=== PATIENT | female | born 1945 | race Caucasian/White ===

== ENCOUNTER → 2017-11-03 | Outpatient (CLI) | payer OTHER ==
[2017-11-05 14:09] LABS: HPV 16 Negative (Negative); HPV 18 Negative (Negative); HPV OTHER HR TYPES Negative (Negative)
== END | disposition home or self-care (01) ==
LOC: LAB SHORT 15:19 → LAB 15:19
PROVIDERS: Nurse Practitioner Women's Health
DX: Z12.4 Encounter for screening for malignant neoplasm of cervix (principal)
CPT/HCPCS: 87624; G0123

== ENCOUNTER 2024-01-10 12:40 | Inpatient (IN) | payer OTHER ==
[~2024-01-10] VITALS: Ht 167.6 cm; Wt 55.9 kg
[~2024-01-10 12:40] MED LIST: HYDR1TAB94 PO
[2024-01-10 12:55] LABS: BASOPHILS ABSOLUTE AUTO 0.04 K/mm3 (0.00-0.23); BASOPHILS PERCENT AUTO 1 % (0-2); EOSINOPHILS ABSOLUTE AUTO 0.04 K/mm3 (0.00-0.68); EOSINOPHILS PERCENT AUTO 1 % (0-6); Hematocrit 34.4 % (33.0-51.0); Hemoglobin 11.3 g/dL (11.5-16.0); IMMATURE GRAN ABSOLUTE AUTO 0.01 K/mm3 (0.00-0.10); IMMATURE GRAN PERCENT AUTO 0 % (0-1); LYMPHOCYTES ABSOLUTE AUTO 1.23 K/mm3 (0.84-5.20); LYMPHOCYTES PERCENT AUTO 26 % (21-46); MONOCYTES ABSOLUTE AUTO 0.55 K/mm3 (0.16-1.47); MONOCYTES PERCENT AUTO 12 % (4-13); Mean Corpuscular HGB 29.9 pg (26.0-34.0); Mean Corpuscular HGB Conc 32.8 g/dL (31.5-36.5); Mean Corpuscular Volume 91 fL (80-100); NEUTROPHILS ABSOLUTE AUTO 2.92 K/mm3 (1.96-9.15); NEUTROPHILS PERCENT AUTO 61 % (41-73); Platelet Count 151 K/mm3 (150-400); RDW Coefficient Variation 12.8 % (11.7-14.2); RDW Standard Deviation 41.9 fL (35.1-46.3); Red Blood Cell Count 3.78 M/mm3 (3.80-5.20); White Blood Cell Count 4.79 K/mm3 (4.00-11.30)
[2024-01-10 13:20] LABS: Albumin/Globulin Ratio 1.1 (0.8-1.8); Bilirubin, Total 0.4 mg/dL (0.1-1.0); Bun/Creatinine Ratio 20.1 (12.0-20.0); Calcium, Blood 7.3 mg/dL (8.5-10.1); Creatinine, Blood 0.7 mg/dL (0.40-1.00); Globulin, Blood 2.7 g/dL (2.2-4.0); Potassium, Blood 3.2 mmol/L (3.5-5.5); Total Protein, Blood 5.7 g/dL (6.4-8.2)
[2024-01-10] MEDS ORDERED: Potassium Chloride 20 MEQ TabCR PO ONE (13:25)
[2024-01-10] MEDS ORDERED: Calcium Carbonate 500 MG Tab Chew PO ONE (13:25)
[2024-01-10] MEDS ORDERED: Aspirin 325 MG Tab PO ONE (13:50)
[2024-01-10] MEDS ORDERED: FLU VACC TS2024-25(6MOS UP)/PF 45 MCG/0.5 ML SYRINGE IM SCH (14:45)
[2024-01-10] MEDS ORDERED: NS 1,000 ML IV SCH (14:50)
[2024-01-10 17:20] VITALS: BP 169/86
--- NOTE | 2024-01-10 17:45 | NUR ---
ADMISSION NOTE: PATIENT ARRIVED TO THE UNIT VIA WHEELCHAIR; ALERT AND ABLE TO SELF TRANSFER TO THE BED. ORTHOSTATIC VITALS OBTAINED AND IV FLUIDS STARTED. AWAITING TELEMETRY. NO SIGNS OR SYMPTOMS OF DISTRESS, PLAN OF CARE ONGOING.
--- NOTE | 2024-01-10 18:22 | NUR ---
PATIENT SHARED WITH THIS RN THAT BACK IN 2017 SHE HAD AN EPISODE WHERE SHE WAS WITH HER DAUGHTER AND THEY WERE BOTH ABOUT TO GET INTO THE CAR WHEN THE PATIENT DID NOT ENTER THE CAR. THE DAUGHTER WENT TO GO LOCATE THE PATIENT AND FOUND THE PATIENT DOWN UNCONCIOUS WITH MULTIPLE INJURIES. PATIENT AND DAUGHTER UNSURE OF WHAT HAPPENED. PATIENT STATES THAT SHE DID GO TO THE HOSPITAL FOR THIS. PATIENT ALSO SHARED THAT SINCE SHE HAD COVID LAST YEAR SHE HAS HAD SHORTNESS OF BREATH WHEN CLIMBING STAIRS. SHE ALSO HAD A COMPLICATION WITH INTUBATION WITH A PROCEDURE THAT DAMAGED HER THROAT THAT HAS NOW CAUSED HER TO HAVE THIS CHRONIC IRRITATION AND DRY COUGH FOR X5 YEARS.
[2024-01-10 20:22] VITALS: BP 150/92
--- NOTE | 2024-01-10 22:08 | NUR ---
GOT A CALL FROM LAB THAT PTS TROPONIN WAS CRITICAL AT [address]. CALLED DR. MULLIGAN ON 3 DIFFERENT OCCASIONS AND GOT A CALL BACK AND I INFORMED HIM OF PTS TROPONIN BEING ELEVATED AT 4662. HE STATED THAT HE WOULD REVIEW THE PTS CHART. PT HAS NO C/O CHEST PAIN OR SOB AT THIS TIME. NO S/S NOTED AT THIS TIME WILL CONTINUE TO MONITOR
[2024-01-10] MEDS ORDERED: Atorvastatin 40 MG Tab PO SCH (23:00)
[2024-01-10] MEDS ORDERED: Clopidogrel Bisulfate 75 MG Tab PO ONE (23:00)
[2024-01-10 23:14] LABS: Anti-Xa UFH, PHA Monitoring <0.10 IU/mL; International Normalized Ratio 0.97; Prothrombin Time Results 10.4 Sec (9.7-11.5)
[2024-01-10] MEDS ORDERED: Heparin Sodium,Porcine/0.5 NS 500 ML IV SCH (23:35)
[2024-01-10] MEDS ORDERED: Heparin Sodium 5000 Units/ML 1ML MDV IV ONE (23:35)
[2024-01-11] VITALS (10 sets, daily range): BP systolic 103–136; BP diastolic 52–78
--- NOTE | 2024-01-11 05:20 | NUR ---
SHIFT SUMMARY PT ALERT ORIENTED CALLS APPROPRIATELY. HER TROPONIN LAST NIGHT AT 1999 WAS 4662 UP FROM 171 ON ADMIT. STATED SHES DX WITH A NSTEMI AND STARTED HER ON HEPARIN, ASA, LIPITOR AND PLAVIX. SHE WAS GIVEN THE INITIAL BOLUS OF HEPARIN AT 0015 AND STARTED THE DRIP AT 16.8ML/HR OR 15U/KG/HR. SHES C/O CHEST PRESSURE AND LOWER BACK PAIN. WAS INFORMED OF THIS. SHES DUE TO HAVE A ECHO DONE TODAY. SHE RECEIVED A ONE LITER BAG OF NS AND NOW JUST REMAINS ON THE HEPARIN DRIP. REMAINS ON TELEMETRY AT [facility] AT A RATE OF 88. VSS ON RA SATTING AT 99%. A CARDIOLOGY CONSULT WAS PUT IN FOR DR. TRISTAN. I CALLED THE [facility] AND SPOKE WITH THE ONCALL CENTER AND A ORDER WAS PUT IN FOR THE CONSULT. NO C/O DIZZINESS THIS SHIFT. NO EPISODES OF SYNCOPE. SHES SLEEPING IN BED AT THIS TIME WITH CALL LIGHT IN REACH
[2024-01-11 05:46] LABS: BASOPHILS ABSOLUTE AUTO 0.04 K/mm3 (0.00-0.23); BASOPHILS PERCENT AUTO 1 % (0-2); EOSINOPHILS ABSOLUTE AUTO 0.09 K/mm3 (0.00-0.68); EOSINOPHILS PERCENT AUTO 2 % (0-6); Hematocrit 35.4 % (33.0-51.0); Hemoglobin 12.2 g/dL (11.5-16.0); IMMATURE GRAN ABSOLUTE AUTO 0.01 K/mm3 (0.00-0.10); IMMATURE GRAN PERCENT AUTO 0 % (0-1); LYMPHOCYTES ABSOLUTE AUTO 1.66 K/mm3 (0.84-5.20); LYMPHOCYTES PERCENT AUTO 28 % (21-46); MONOCYTES ABSOLUTE AUTO 0.71 K/mm3 (0.16-1.47); MONOCYTES PERCENT AUTO 12 % (4-13); Mean Corpuscular HGB 30.1 pg (26.0-34.0); Mean Corpuscular HGB Conc 34.5 g/dL (31.5-36.5); Mean Corpuscular Volume 87 fL (80-100); Mean Platelet Volume 10.1 fL (9.1-12.4); NEUTROPHILS ABSOLUTE AUTO 3.34 K/mm3 (1.96-9.15); NEUTROPHILS PERCENT AUTO 57 % (41-73); Platelet Count 175 K/mm3 (150-400); RDW Coefficient Variation 12.7 % (11.7-14.2); Red Blood Cell Count 4.05 M/mm3 (3.80-5.20); White Blood Cell Count 5.85 K/mm3 (4.00-11.30)
[2024-01-11 06:08] LABS: Bun/Creatinine Ratio 13.5 (12.0-20.0); Calcium, Blood 8.7 mg/dL (8.5-10.1); Creatinine, Blood 0.67 mg/dL (0.40-1.00); Potassium, Blood 3.8 mmol/L (3.5-5.5)
[2024-01-11] MEDS ORDERED: Dose Adjust by Pharmacy XX STA (07:37)
[2024-01-11] MEDS ORDERED: Aspirin 325 MG Tab PO ONE (08:55)
[2024-01-11] MEDS ORDERED: Aspirin 81 MG Chew PO SCH (09:00)
[2024-01-11] MEDS ORDERED: Enoxaparin 40 MG/0.4 ML SYR SC SCH (09:00)
[2024-01-11 11:24] LABS: CHOL/HDL RATIO 2.7; Cholesterol 188 mg/dL (50-200); HDL Cholesterol 70 mg/dL (>39); LDL/HDL RATIO 1.5; Low Density Lipoprotein Chol 107 mg/dL (0-110); Triglycerides 57 mg/dL (30-160); Very Low Density Lipoprot Chol 11 mg/dL (6-32)
[2024-01-11] MEDS ORDERED: NS 250 ML IV ONE (12:40)
[2024-01-11] MEDS ORDERED: NS 2,000 ML IV ONE (12:40)
[2024-01-11] MEDS ORDERED: Nitroglycerin 2 MG/20 ML BTL ONE (12:41)
[2024-01-11] MEDS ORDERED: Heparin Sodium 1000 Units/ML 10ML MDV ONE (12:41)
[2024-01-11] MEDS ORDERED: Verapamil HCL 2.5 MG/ML 2ML Injection ONE (12:41)
[2024-01-11] MEDS ORDERED: FentaNYL Citrate 50 MCG/ML 2 ML Injection ONE (12:42)
[2024-01-11] MEDS ORDERED: Midazolam HCl 1MG / ML 2ML Vial ONE (12:42)
[2024-01-11] MEDS ORDERED: Phenylephrine HCl 100 MCG/ML-NS 10MLSYR (1MG/10ML) ONE (13:41)
--- NOTE | 2024-01-11 13:48 | NUR ---
PT LEFT FOR OCULAR CARE TECHNOLOGIST AT 1255. HEPARIN INFUSION WAS STOPPED PRIOR TO LEAVING FOR OCULAR CARE TECHNOLOGIST BY OCULAR CARE TECHNOLOGIST CREW. PT IS A/O X4. DENIES SOB, REPORTS CHEST "PRESSURE". SHE AMBULATES WITHOUT ASSITANCE IN THE ROOM. LS CLEAR TO DIM T/O. SR NOTED ON MONITOR. IV PATENT AT TIME HEPARIN WAS STOPPED. SHE HAS BEEN UP TO BATHROOM WITHOUT DISTRESS. PT TALKING IN FULL SENTENCES, PELASANT AND COOPERATIVE WITH CARE. SHE WAS SEEN THIS AM BY DR HEATH AND CONSENTED BY HIM FOR PROCEDURE. REPORT CALLED TO ANGIE WHO WILL ASSUME PT CARE IN ICU 6 WHEN SHE IS FINISHED IN OCULAR CARE TECHNOLOGIST
--- NOTE | 2024-01-11 16:30 | NUR ---
UPDATE 4362 Dr. Solorio at bedside. Pt complaining of pain/numbness in forearm. Large hematoma noted. Placed a BP cuff over site, inflated to 80. Circulation confirmed with contiuous pulse ox below site. Per provider, remove and re-assess in an hour.
--- NOTE | 2024-01-11 17:37 | NUR ---
1700 No changes noted to TR band, BP cuff on hematoma in place. Pt complaining of numbness in fingers but good pleth on monitor and good cap refill. 1727 Called into room, bleeding from TR band. Re-inflated to 15cc. BP cuff deflated, hematoma improved.
--- NOTE | 2024-01-11 19:35 | NUR ---
ASSUME CARE OF PT AT 1830. TR BAND INFLATED WITH 15 MLS OF AIR WITH BLOOD AT SITE. HEMATOMA NOTED TO RIGHT UPPER FOREARM. PT AMBULATED IN ROOM TO TOILET WITHOUT DIFFICULTY. REPORT GIVEN TO SOFTWARE RELEASE ENGINEER RN. HEMATOMA AND TR BAND SITES UNCHANGED FROM ASSUMPTION OF CARE.
--- NOTE | 2024-01-11 21:32 | NUR ---
ASSUMED CARE ASSUMED CARE AT APPROXIMATELY 1915. PT RESTING COMFORTABLY IN BED WITH A MEDIUM KNOWN HEMATOMA ON R ARM PROXIMAL TO PCI SITE. PT COMPLAINS OF PAIN WITH R ARM WITH PRONATION. TR BAND IN PLACE ON ARRIVAL TO SHIFT. WILL CONTINUE TO DEFLATE TR BAND AND MONITOR CLOSELY FOR S/S OF BLEEDING OR HEMATOMAS. PT HAS NO OTHER COMPLAINTS. WILL CONTINUE PLAN OF CARE.
[2024-01-12 03:21] VITALS: BP 123/73
[2024-01-12 03:29] LABS: BASOPHILS ABSOLUTE AUTO 0.03 K/mm3 (0.00-0.23); BASOPHILS PERCENT AUTO 1 % (0-2); EOSINOPHILS ABSOLUTE AUTO 0.08 K/mm3 (0.00-0.68); EOSINOPHILS PERCENT AUTO 1 % (0-6); Hematocrit 34.3 % (33.0-51.0); Hemoglobin 11.8 g/dL (11.5-16.0); IMMATURE GRAN ABSOLUTE AUTO 0.01 K/mm3 (0.00-0.10); IMMATURE GRAN PERCENT AUTO 0 % (0-1); LYMPHOCYTES ABSOLUTE AUTO 1.61 K/mm3 (0.84-5.20); LYMPHOCYTES PERCENT AUTO 27 % (21-46); MONOCYTES ABSOLUTE AUTO 0.81 K/mm3 (0.16-1.47); MONOCYTES PERCENT AUTO 14 % (4-13); Mean Corpuscular HGB 29.9 pg (26.0-34.0); Mean Corpuscular HGB Conc 34.4 g/dL (31.5-36.5); Mean Corpuscular Volume 87 fL (80-100); Mean Platelet Volume 10.3 fL (9.1-12.4); NEUTROPHILS ABSOLUTE AUTO 3.34 K/mm3 (1.96-9.15); NEUTROPHILS PERCENT AUTO 57 % (41-73); Platelet Count 173 K/mm3 (150-400); RDW Coefficient Variation 12.8 % (11.7-14.2); RDW Standard Deviation 40.8 fL (35.1-46.3); Red Blood Cell Count 3.94 M/mm3 (3.80-5.20); White Blood Cell Count 5.88 K/mm3 (4.00-11.30)
[2024-01-12 03:51] LABS: Calcium, Blood 8.5 mg/dL (8.5-10.1); Creatinine, Blood 0.77 mg/dL (0.40-1.00); Magnesium, Blood 1.7 mg/dL (1.6-2.4); Potassium, Blood 3.7 mmol/L (3.5-5.5)
--- NOTE | 2024-01-12 05:14 | NUR ---
SHIFT SUMMARY PT TR BAND FULLY DEFLATED W/O BLEEDING OR S/S OF HEMATOMA. TR BAND TAKEN OFF AND SITE WAS DRESSED WITH CHLOR/HEX, 4X4 AND TEG. PT COMPLAINS OF TENDER R FOREARM. PT ABLE TO GET UP AND AMBULATE TO BATHROOM INDEPENDENTLY. PT STATED THE MD TOLD HER TO MINIMALLY USE HER R ARM FOR 2 MONTHS. THIS RN INSTRUCTED PT TO FOLLOW UP WITH AM STAFF. WILL CONTINUE PLAN OF CARE.
[2024-01-12 08:00] VITALS: BP 154/77
--- NOTE | 2024-01-12 08:30 | NUR ---
[place] of care: Patient oriented, pleasant, cooperative. No complaints of pain. Vital signs stable. Right wrist site clean/dry/intact with good perfusion to hand. Hematoma to RUE stable. Plans to possibly discharge home today. Will continue to monitor.
[2024-01-12] MEDS ORDERED: Losartan Potassium 25 MG Tab PO SCH (09:00)
[2024-01-12] MEDS ORDERED: Metoprolol Succinate 25 MG TABCR PO SCH (09:00)
--- NOTE | 2024-01-12 10:45 | NUR ---
Patient is lying in bed and alert. She tells me many stories of her adventurous life, the near experiences she has had and the family unit complications. She shares about her [employer] gwen and about the events that led to her admission to the hospital. We talks about her current life and the joys and struggles. I provided therapeutic lstienting and prayer. Patient responded well and showed signs of being encouraged in her beleif system.
[2024-01-12 12:00] VITALS: BP 134/81
--- NOTE | 2024-01-12 13:06 | NUR ---
Discharge note: Pt discharged at 1306 via private transport. All paperwork given to patient & she verbalized understanding of instructions. Vital signs obtained & WNL. She understands to follow up with PCP & cards.
== END 2024-01-12 13:06 | disposition home or self-care (01) | DRG 287 ==
LOC: ER 12:40 → MEDS 12:41 → ICUE 01-11 14:17
PROVIDERS: Emergency Medicine; Family Medicine; Internal Medicine; ADMIT Internal Medicine
PROC: 4A023N7 Measurement of Cardiac Sampling and Pressure, Left Heart, Percutaneous Approach (ICD-10-PCS; principal; 2024-01-11)
PROC: B2111ZZ Fluoroscopy of Multiple Coronary Arteries using Low Osmolar Contrast (ICD-10-PCS; 2024-01-11)
PROC: B2151ZZ Fluoroscopy of Left Heart using Low Osmolar Contrast (ICD-10-PCS; 2024-01-11)
DX: I51.81 Takotsubo syndrome (principal); I95.9 Hypotension, unspecified; E86.0 Dehydration; I25.10 Atherosclerotic heart disease of native coronary artery without angina pectoris; I10 Essential (primary) hypertension; E87.6 Hypokalemia; Z88.0 Allergy status to penicillin; Z88.5 Allergy status to narcotic agent; Z88.8 Allergy status to other drugs, medicaments and biological substances; Z79.82 Long term (current) use of aspirin; Z79.899 Other long term (current) drug therapy; Z79.4 Long term (current) use of insulin; Z90.710 Acquired absence of both cervix and uterus; Z96.642 Presence of left artificial hip joint
CPT/HCPCS: 36415; 76937; 80048; 80053; 80061; 83735; 83880; 84484; 85025; 85520; 85610; 85730; 93005; 93010; 93306; 93458; 96361; 96365; 96366; 96376; 99152; 99153; 99285-25; A9270; C1769; C1887; C1894; G0378; J1644; J2250; J2371; J3010; J7030; J7050; Q9967

== ENCOUNTER 2024-06-06 13:54 | Emergency (ER) | payer OTHER ==
[~2024-06-06] VITALS: Ht 167.6 cm; Wt 59.0 kg
[2024-06-06 14:00] VITALS: BP 183/95
[2024-06-06] MEDS ORDERED: Aspir 8181 MG PO (15:05)
[2024-06-06] MEDS ORDERED: LOSARTAN POTASS25 M2 PO (15:05)
[2024-06-06] MEDS ORDERED: METOPROLOL SUCC25 MG PO (15:05)
[2024-06-06] MEDS ORDERED: Lidocaine 4% 1 Patch TOP ONE (15:10)
[2024-06-06] MEDS ORDERED: TiZANidine HCl 4 MG Tab PO ONE (15:10)
[2024-06-06] MEDS ORDERED: Ketorolac Tromethamine 15mg Vial IM ONE (15:10)
[2024-06-06 16:07] LABS: Source, Urine Clean Catch
[2024-06-06 16:09] LABS: Appearance, Urine Clear (Clear); Bilirubin, Urine Neg (Neg); Blood, Urine 2+ (Neg); Glucose Qualitative, Urine Neg (Neg); Ketones, Urine 2+ (Neg); Leukocyte Esterase, Urine Neg (Neg); Nitrite, Urine Neg (Neg); Protein, Urine Neg (Neg); Urobilinogen, Urine NORM (Normal)
[2024-06-06 16:35] LABS: Color, Urine Pale Yellow (P-Yellow)
[2024-06-06 16:36] LABS: Bacteria Rare /hpf; Squamous Epithelial Cells Few /hpf (Few)
[2024-06-06 16:37] LABS: White Blood Cells, Urine 0-2 /hpf (0-5)
[2024-06-06] MEDS ORDERED: TIZA4 PO (16:57)
[2024-06-06] MEDS ORDERED: LIDO700A20 TOP (16:57)
== END 2024-06-06 17:14 | disposition home or self-care (01) ==
LOC: ER 13:54
PROVIDERS: Physician Assistant
DX: M62.830 Muscle spasm of back (principal); Z88.0 Allergy status to penicillin; Z88.5 Allergy status to narcotic agent; Z88.8 Allergy status to other drugs, medicaments and biological substances; Z79.82 Long term (current) use of aspirin; Z79.899 Other long term (current) drug therapy
CPT/HCPCS: 81001; 99283; A9270; J1885